=== PATIENT | male | born 1955 | race Caucasian/White ===

== ENCOUNTER → 2023-07-01 | Outpatient (CLI) | payer BC ==
[~2023-07-01] MED LIST: ALBUTEROL0.83 MG/ML IH; ASPIRIN E.C. 8181 MG PO; PROTONIX 40MG T40 MG PO; ZITHROMAX500 M2 PO
== END ==
LOC: MHCPAIN 10:30
DX: M47.812 Spondylosis without myelopathy or radiculopathy, cervical region (principal); M54.81 Occipital neuralgia; R51.9 Headache, unspecified
CPT/HCPCS: G0463

== ENCOUNTER → 2023-08-05 | Outpatient (CLI) | payer BC | LOC: MHCPAIN 13:13 | DX: R51.9 Headache, unspecified (principal); M47.812 Spondylosis without myelopathy or radiculopathy, cervical region; D32.0 Benign neoplasm of cerebral meninges | CPT/HCPCS: G0463 ==